=== PATIENT | male | born 1930 | race African-American/Black ===

== ENCOUNTER 2017-05-11 07:38 | Emergency (ER) | payer MEDICARE, MEDICAID ==
[~2017-05-11] VITALS: Ht 175.3 cm; Wt 68.0 kg
[~2017-05-11 07:38] MED LIST: AMLO2.5T45 PO; ATOR40TA70 PO; DONE5TAB7 PO; DORZ10DR7 EACHEYE; LATA2.5D2 EACHEYE; NITR100C2 PO
[2017-05-11 11:43] LABS: BASOPHILS % 0.8 % (0.0-2.0); EOSINOPHILS % 3.9 % (0.0-5.0); HEMOGLOBIN. 10.8 g/dL (14.0-18.0); LYMPHOCYTES % 31.6 % (20.0-50.0); MEAN CORPUSCULAR HEMOGLOBIN 27.6 pg (28.0-32.0); MEAN CORPUSCULAR VOLUME 84.1 fL (80.0-94.0); MEAN PLATELET VOLUME 8.6 fl (7.4-10.4); MONOCYTES % 7.5 % (2.0-8.0); NEUTROPHILS % 56.2 % (40.0-76.0); PLATELET 253 x1000/uL (130-400); RED BLOOD CELL COUNT 3.93 mill/uL (4.7-6.1); RED CELL DISTRIBUTION WIDTH 15.2 % (11.6-14.6)
[2017-05-11 11:47] LABS: CHLORIDE 105 mEq/L (98-107)
[2017-05-11 11:51] LABS: INR 1.1; PROTHROMBIN TIME 11.3 sec
[2017-05-11 11:52] LABS: CARBON DIOXIDE 26 mEq/L (21-32)
[2017-05-11] MEDS ORDERED: LIDOCAINE HCL 1% 20ML VIAL (Pyxis) INJ ONE (14:05)
[2017-05-11] MEDS ORDERED: SODIUM BICARBONATE 4% (2.4MEQ) 5ML VIAL IV ONE (14:05)
[2017-05-11 16:13] VITALS: BP 142/89
== END 2017-05-11 16:16 | disposition home or self-care (01) ==
LOC: ER 08:02 → CANBEDREQ 16:54
DX: N13.9 Obstructive and reflux uropathy, unspecified (principal); H40.9 Unspecified glaucoma; J44.9 Chronic obstructive pulmonary disease, unspecified; I10 Essential (primary) hypertension; E78.00 Pure hypercholesterolemia, unspecified; E11.9 Type 2 diabetes mellitus without complications; F03.90 Unspecified dementia, unspecified severity, without behavioral disturbance, psychotic disturbance, mood disturbance, and anxiety; Z88.1 Allergy status to other antibiotic agents
CPT/HCPCS: 36415; 51702; 76942; 80048; 85025; 85610; 99285; C1729; C1769; J3490; J7050; L8514; A4315

== ENCOUNTER 2017-06-22 11:23 | Emergency (ER) | payer MEDICARE, MEDICAID ==
[~2017-06-22] VITALS: Ht 177.8 cm; Wt 75.0 kg
[2017-06-22 12:05] LABS: EOSINOPHILS % 4.2 % (0.0-5.0); HEMATOCRIT. 33.5 % (42.0-52.0); HEMOGLOBIN. 10.8 g/dL (14.0-18.0); LYMPHOCYTES % 19.3 % (20.0-50.0); MEAN CORPUSCULAR HEMOGLOBIN 27.7 pg (28.0-32.0); MEAN CORPUSCULAR VOLUME 85.6 fL (80.0-94.0); MEAN PLATELET VOLUME 9.3 fl (7.4-10.4); MONOCYTES % 8.3 % (2.0-8.0); NEUTROPHILS % 67.2 % (40.0-76.0); PLATELET 209 x1000/uL (130-400); RED BLOOD CELL COUNT 3.91 mill/uL (4.7-6.1); RED CELL DISTRIBUTION WIDTH 16.1 % (11.6-14.6)
[2017-06-22 12:18] LABS: INR 1.1; PARTIAL THROMBOPLASTIN TIME 32.4 sec (23.4-31.0); PROTHROMBIN TIME 11.6 sec (9.4-11.6)
[2017-06-22 12:21] LABS: CARBON DIOXIDE 26 mEq/L (21-32); CHLORIDE 108 mEq/L (98-107)
[2017-06-22] MEDS: SODIUM CHLORIDE 0.9% 500 ML IV ONE (12:22)
[2017-06-22] MEDS: MORPHINE SULFATE 4 MG/ML CPJ (NOT FOR IM USE) IV STA (13:06)
[2017-06-22] MEDS: ONDANSETRON HCL 4MG/2ML VIAL IV STA (13:06)
[2017-06-22] MEDS ORDERED: LIDOCAINE HCL 1% 20ML VIAL (Pyxis) INJ ONE (14:38)
[2017-06-22] MEDS ORDERED: SODIUM BICARBONATE 4% (2.4MEQ) 5ML VIAL IV ONE (14:39)
[2017-06-22 18:32] VITALS: BP 130/55
== END 2017-06-22 18:48 ==
LOC: ER 11:28
DX: T83.090A Other mechanical complication of cystostomy catheter, initial encounter (principal); R33.9 Retention of urine, unspecified; R10.9 Unspecified abdominal pain; J44.9 Chronic obstructive pulmonary disease, unspecified; F03.90 Unspecified dementia, unspecified severity, without behavioral disturbance, psychotic disturbance, mood disturbance, and anxiety; E11.9 Type 2 diabetes mellitus without complications; Z88.1 Allergy status to other antibiotic agents; Y73.8 Miscellaneous gastroenterology and urology devices associated with adverse incidents, not elsewhere classified
CPT/HCPCS: 36415; 51102; 71010; 74176; 76942; 80053; 85025; 85610; 85730; 93005; 96361; 96374; 96375; 99285; J2270; J2405; J3490; J7030; J7040; J7050

== ENCOUNTER 2018-11-16 23:02 | Emergency (ER) | payer MEDICARE, MEDICAID, OTHER ==
[~2018-11-16] VITALS: Ht 165.1 cm; Wt 74.0 kg
[~2018-11-16 23:02] MED LIST changes: -DORZ10DR7 EACHEYE; +DORZ10DR8 EACHEYE; -NITR100C2 PO; +SULF1TAB48 MT
[2018-11-17 03:31] VITALS: BP 125/63
== END 2018-11-17 03:32 ==
LOC: ER 23:02
DX: T83.091A Other mechanical complication of indwelling urethral catheter, initial encounter (principal); R33.9 Retention of urine, unspecified; E78.00 Pure hypercholesterolemia, unspecified; I10 Essential (primary) hypertension; H40.9 Unspecified glaucoma; Z88.1 Allergy status to other antibiotic agents; Z79.899 Other long term (current) drug therapy
CPT/HCPCS: 51702; 99284; A4315